=== PATIENT | female | born 1985 | race Caucasian/White ===

== ENCOUNTER 2017-10-20 05:50 | Inpatient (IN) | payer OTHER ==
[~2017-10-20] VITALS: Ht 170.2 cm; Wt 85.0 kg
[~2017-10-20 05:50] MED LIST: VITAFOL-OB+DHA1 EACH PO
--- NOTE | 2017-10-20 12:51 | NUR ---
I WAS CONTACTED BY [facility]PRE[facility] BUNDY ON [facility]. FETUS HAD NOT YET BEEN DELIVERED, STAFF NEEDED UPDATE ON SERVICES. INSTRUCTED STAFF, THEY REQUESTED ONE OF OUR BURIAL BOXES IF FAMILY DESIRED. I LET STAFF KNOW THAT I AM STILL AVAILABLE IF THE FAMILY REQUESTS. WILL FOLLOW NEEDED
--- NOTE | 2017-10-21 14:07 | NUR ---
PT AND REQUESTED I VISIT TO HELP THEM UNDERSTAND THE FETUS BURIAL HELP [facility] AND [facility] OFFERS. EXPLAINED BURIAL, SHOWED PICS OF LOCATION IN [facility] AND GAVE THEM A BURIAL BOX. THEY ACKNOWLEDGED THEY UNDERSTOOD. I THEN INFORMED THEM THAT I WOULD CONTACT FR CUR[facility]E, AND MAKE ARRANGEMENTS WITH HIM AND NOTIFY PT WHEN POSSIBLE DATE IS. PT AND SHARED HONEST FEELINGS, RAW EMOTIONS AND BEGAN A HEALTHY GRIEVING PROCESS. PT REQUESTED PRAYER, WILL STAY CONNECTED AND FOLLOW NEEDED
== END 2017-10-21 11:00 | disposition home or self-care (01) | DRG 770 ==
LOC: FBC 05:50
PROVIDERS: ADMIT General Practice
PROC: 10D17Z9 Manual Extraction of Products of Conception, Retained, Via Natural or Artificial Opening (ICD-10-PCS; principal; 2017-10-20)
PROC: 3E0P7VZ Introduction of Hormone into Female Reproductive, Via Natural or Artificial Opening (ICD-10-PCS; 2017-10-20)
DX: O02.1 Missed abortion (principal); O99.282 Endocrine, nutritional and metabolic diseases complicating pregnancy, second trimester; E55.9 Vitamin D deficiency, unspecified; Z3A.18 18 weeks gestation of pregnancy; Z37.1 Single stillbirth
CPT/HCPCS: 36415; 85025; 85027; 86850; 86900; 86901; J2405; J2590; J3010; J7120

== ENCOUNTER 2019-01-27 05:25 | Inpatient (IN) | payer OTHER ==
[~2019-01-27] VITALS: Ht 170.2 cm; Wt 97.0 kg
--- NOTE | 2019-01-27 09:30 | PR ---
[facility] [address] [place], [place] [address] Signed Progress Notes IP Datetime Report Generated by CPN: 01/27/2019 09:29 PROGRESS NOTES: [id number] Impression: Normal progression of labor Procedures: Artificial ROM Plan: Continue present management Informed Consent Obtain: Vaginal Delivery VITAL SIGNS: [id number] Vital Signs: Reviewed; Within Normal Limits EXAM: [id number] Dilatation: 8.0 Effacement: 90 Station: -2 Uterine Contractions: q 3 min MEMBRANES: [id number] Pooling: Negative Membrane Status: Bulging ROM Note: After confirming head applied and no other presenting parts, fundal pressure was applied by RN and controlled AROM was performed without difficulty. Moderate amount of clear fluid, and head descended well without prolapse. Mother and baby tolerated well Comments: Pt seen and examined. Doing well. Comfortable with intrathecal kindly placed by Clary. Swain cath in place. Discussed AROM and verbal consent obtained. AROM performed without difficulty. Anticipate soon. Fetus A: [id number] FHR Baseline: 120 Variability: Moderate 6-25bpm Accelerations: 15X15 Decelerations: None FHR Category: Category I Presentation: Vertex Comments on Fetus A: No evidence of metabolic acidosis Fetus B: [id number] Signing Physician: Darinel Carrion DO Copies: *Electronically Signed* 01/27/19 0929 DARINEL CARRION DO PATIENT NAME: SANDRA LONG PROGRESS NOTE DATE OF : [birth year] PHYSICIAN: DARINEL CARRION DO RPT #: [id number] REPORT IS CONFIDENTIAL AND NOT TO BE RELEASED WITHOUT AUTHORIZATION [facility] [address] [place] [address] [place], [place] [address] Signed ~ *Electronically Signed* 01/27/19 0929 DARINEL CARRION DO PATIENT NAME: SANDRA LONG PROGRESS NOTE DATE OF : [birth year] PHYSICIAN: DARINEL CARRION DO RPT #: [id number] REPORT IS CONFIDENTIAL AND NOT TO BE RELEASED WITHOUT AUTHORIZATION
--- NOTE | 2019-01-27 10:52 | PR ---
[facility] [address] [place], [place] [address] Signed Progress Notes IP Datetime Report Generated by SANDIE: 01/27/2019 10:52 PROGRESS NOTES: [id number] Impression: Reassuring heart rate; Slow Progression of Labor Procedures: Intrauterine Pressure Catheter; Sterile Vag Exam Plan: Continue present management; Anesthesia consult Other Plans: Consider augmentation w/ pit Informed Consent Obtain: Vaginal Delivery VITAL SIGNS: [id number] Vital Signs: Reviewed; Within Normal Limits EXAM: [id number] Dilatation: 9.0 Effacement: 90 Station: -2 Uterine Contractions: q 1-3 minutes MEMBRANES: [id number] Pooling: Negative Membrane Status: Bulging Amniotic Fluid Color: Clear ROM Note: After confirming head applied and no other presenting parts, fundal pressure was applied by RN and controlled AROM was performed without difficulty. Moderate amount of clear fluid, and head descended well without prolapse. Mother and baby tolerated well Comments: Pt seen and examined. Intrathecal anesthetic no longer providing adequate relief. station remains high. position evaluated and BRIDGETTE. Reviewed anticipate weight - pt reports she feels this baby is very similar to her prior baby who was 7#4oz, and I agree. Reviewed appropriate passage and passenger. Will evaluate adequacy of contractions w/ IUPC. IUPC was easily placed. Will contact anesthesia for possible epidural. Reviewed nitrous as possible option. Will monitor closely. Fetus A: [id number] FHR Baseline: 115 Variability: Moderate 6-25bpm Accelerations: 15X15 Decelerations: Early; Variable FHR Category: Category II Presentation: Vertex Other Presentation: BRIDGETTE Comments on Fetus A: No evidence of metabolic acidosis *Electronically Signed* 01/27/191051 DARINEL CARRION DO PATIENT NAME: SANDRA LONG PROGRESS NOTE DATE OF : [birth year] PHYSICIAN: DARINEL CARRION DO RPT #: [id number] REPORT IS CONFIDENTIAL AND NOT TO BE RELEASED WITHOUT AUTHORIZATION [address] [place], [place] [address] Signed Fetus B: [id number] Signing Physician: Darinel Carrion DO Copies: ~ *Electronically Signed* 01/27/191051 DARINEL CARRION DO PATIENT NAME: SANDRA LONG PROGRESS NOTE DATE OF : [birth year] PHYSICIAN: DARINEL CARRION DO RPT #: [id number] REPORT IS CONFIDENTIAL AND NOT TO BE RELEASED WITHOUT AUTHORIZATION
== END 2019-01-28 15:00 | disposition home or self-care (01) | DRG 807 ==
LOC: FBCO 05:25 → FBC 07:45 → FBCO 02-05 13:38
PROVIDERS: ADMIT General Practice
PROC: 10E0XZZ Delivery of Products of Conception, External Approach (ICD-10-PCS; principal; 2019-01-27)
PROC: 0KQM0ZZ Repair Perineum Muscle, Open Approach (ICD-10-PCS; 2019-01-27)
PROC: 10907ZC Drainage of Amniotic Fluid, Therapeutic from Products of Conception, Via Natural or Artificial Opening (ICD-10-PCS; 2019-01-27)
PROC: 10H07YZ Insertion of Other Device into Products of Conception, Via Natural or Artificial Opening (ICD-10-PCS; 2019-01-27)
PROC: 00HU33Z Insertion of Infusion Device into Spinal Canal, Percutaneous Approach (ICD-10-PCS; 2019-01-27)
PROC: 3E0R3BZ Introduction of Anesthetic Agent into Spinal Canal, Percutaneous Approach (ICD-10-PCS; 2019-01-27)
DX: O76 Abnormality in fetal heart rate and rhythm complicating labor and delivery (principal); Z37.0 Single live birth; O70.1 Second degree perineal laceration during delivery; Z3A.38 38 weeks gestation of pregnancy
CPT/HCPCS: 36415; 59025; 85027; 99213; J2590; J7120

== ENCOUNTER 2020-10-08 21:14 | Inpatient (IN) | payer OTHER ==
[~2020-10-08] VITALS: Ht 170.2 cm; Wt 105.2 kg
--- NOTE | 2020-10-08 21:54 | NUR ---
[facility] RAPID COVID TEST DONE PER ORDER. COVID TEST WAS COLLECTED FROM BOTH NARES W/O ISSUE. PT TOLERATED WELL.
--- NOTE | 2020-10-08 23:08 | PR ---
[facility] [address] [place], [place] [address] Signed Progress Notes IP Datetime Report Generated by CPN: 10/08/2020 23:08 PROGRESS NOTES: [id number] Impression: Normal Progression of Labor; Reassuring Heart Rate Procedures: Sterile Vag Exam Plan: Continue Present Management Informed Consent Obtain: Vaginal Delivery VITAL SIGNS: [id number] Vital Signs: Reviewed; Within Normal Limits VS Notable Details: Slightly elevated BPs EXAM: [id number] Dilatation: 6.0 Effacement: 50 Station: -3 Contractions: Irregular MEMBRANES: [id number] Comments: Pt seen and examined. Hypotensive episode w/ resulting in prolonged deceleration following epidural that quickly resolved w/ IV fluids, position change, and IV ephedrine. Reviewed reassuring FHT and anticipated course of labor. Bulging membranes but vertex NOT well applied. Will try position changes and possibly augment w/ pitocin FETUS A: [id number] FHR Baseline: 125 Variability: Minimal - >Undetectable to <=5bpm Accelerations: 15X15 Decelerations: None FHR Category: Category II Presentation: Vertex Comments on Fetus A: No evidence of metabolic acidosis FETUS B: [id number] Signing Physician: Darinel Carrion DO Copies: ~ *Electronically Signed* 10/08/20 3478 DARINEL CARRION DO PATIENT NAME: SANDRA LONG PROGRESS NOTE DATE OF : 87 PHYSICIAN: DARINEL CARRION DO [facility] #: [id number] REPORT IS CONFIDENTIAL AND NOT TO BE RELEASED WITHOUT AUTHORIZATION
--- NOTE | 2020-10-09 00:12 | PR ---
[facility] [address] [place], [place] [address] Signed Progress Notes IP Datetime Report Generated by CPN: 10/09/2020 00:12 PROGRESS NOTES: [id number] Impression: Normal Progression of Labor; Reassuring Heart Rate Procedures: Artificial ROM; Sterile Vag Exam Plan: Continue Present Management; Anticipate Vaginal Delivery Informed Consent Obtain: Vaginal Delivery VITAL SIGNS: [id number] Vital Signs: Reviewed; Within Normal Limits VS Notable Details: Slightly elevated BPs EXAM: [id number] Dilatation: 7.0 Effacement: 70 Station: -3 Contractions: Irregular MEMBRANES: [id number] Comments: Pt seen and examined. Doing well. Comfortable w/ contractions. Ctxs still quite spaced every 6-7 minutes but pt continues to make good cervical change. On exam vertex now well applied and bluging bag noted. AROM performed for moderate amount of clear fluid. Mother and baby tolerated well. Anticipate . Discussed possible indication for augmentation if CTXs inadequate. FETUS A: [id number] FHR Baseline: 125 Variability: Minimal - >Undetectable to <=5bpm Accelerations: 15X15 Decelerations: None FHR Category: Category II Presentation: Vertex Comments on Fetus A: No evidence of metabolic acidosis FETUS B: [id number] Signing Physician: Darinel Carrion DO Copies: ~ *Electronically Signed* 10/09/20 0012 DARINEL CARRION DO PATIENT NAME: SANDRA LONG PROGRESS NOTE DATE OF : 87 PHYSICIAN: DARINEL CARRION DO [facility] #: [id number] REPORT IS CONFIDENTIAL AND NOT TO BE RELEASED WITHOUT AUTHORIZATION
--- NOTE | 2020-10-09 12:15 | PR ---
[facility] [address] [facility] [place], [place] [address] Signed PP Progress Notes Datetime Report Generated by CPN: 10/09/2020 12:15 SUBJECTIVE: [id number] Pain: Within Normal Limits Nausea/Vomiting: Denies Flatus: Yes Vital Signs: [id number] Vital Signs: Reviewed; Within Normal Limits Cardiovascular: Normal Respiratory: Normal Abdomen/Uterus: Normal Lochia: Normal Vulva/Perineum: Not Done Breasts: Not Done CVA Tenderness: Normal Extremities: Normal Incision: Not Applicable Exam Comments: Fundus firm U-2 nontender IMPRESSION/PLAN/PROCEDURES: [id number] Impression: Normal Progression Plan: Discharge Progress Notes: Pt seen and evaluated. Doing well. Ambulating, voiding, and tolerating full diet. Pain and lochia minimal. No fevers/chills. did well and developed increased work of breathing and was transferred by pediatrics to NICU at another facility. Pt requesting discharge now so she can be with her . She feels ready for discharge. Reviewed d/c instructions Signing Physician: Darinel Carrion DO Copies: ~ *Electronically Signed* 10/09/20 1212 DARINEL CARRION DO PATIENT NAME: SANDRA LONG PROGRESS NOTE DATE OF : 87 PHYSICIAN: DARINEL CARRION DO RPT #: [id number] REPORT IS CONFIDENTIAL AND NOT TO BE RELEASED WITHOUT AUTHORIZATION
== END 2020-10-09 12:30 | disposition home or self-care (01) | DRG 805 ==
LOC: FBCO 21:14 → FBC 21:37
PROVIDERS: ADMIT Obstetrics & Gynecology; ATTEND Obstetrics & Gynecology
PROC: 00HU33Z Insertion of Infusion Device into Spinal Canal, Percutaneous Approach (ICD-10-PCS; 2020-10-08)
PROC: 3E0R3BZ Introduction of Anesthetic Agent into Spinal Canal, Percutaneous Approach (ICD-10-PCS; 2020-10-08)
PROC: 10E0XZZ Delivery of Products of Conception, External Approach (ICD-10-PCS; principal; 2020-10-09)
PROC: 0KQM0ZZ Repair Perineum Muscle, Open Approach (ICD-10-PCS; 2020-10-09)
PROC: 10907ZC Drainage of Amniotic Fluid, Therapeutic from Products of Conception, Via Natural or Artificial Opening (ICD-10-PCS; 2020-10-09)
DX: O36.63X0 Maternal care for excessive fetal growth, third trimester, not applicable or unspecified (principal); O99.42 Diseases of the circulatory system complicating childbirth; Z37.0 Single live birth; Z3A.38 38 weeks gestation of pregnancy; O70.1 Second degree perineal laceration during delivery; O76 Abnormality in fetal heart rate and rhythm complicating labor and delivery; I95.9 Hypotension, unspecified; Z87.891 Personal history of nicotine dependence
CPT/HCPCS: 01960; 85027; A9270; C9803; J7121; U0003